=== PATIENT | female | born 1945 | race Two or more races ===

== ENCOUNTER 2023-11-30 06:58 | Day surgery (SDC) | payer OTHER ==
[~2023-11-30] VITALS: Ht 157.5 cm; Wt 59.0 kg
[2023-11-30] VITALS (7 sets, daily range): BP systolic 101–123; BP diastolic 42–65; PULSE 58–72; RESP 11–15; TEMP 97.7; O2SAT 91–97
[~2023-11-30 06:58] MED LIST: ALBU108A14 IN; ALPR0.254 PO; ARIP2TAB PO; ATEN-60 PO; FAMO-12 PO; FLUT1AER6 IN; SERT100T PO; TRAZ-227 PO
[2023-11-30] MEDS ORDERED: IODIXANOL 320MG/ML 100ML BTL IV ONE (07:55)
[2023-11-30] MEDS ORDERED: LIDOCAINE 2%HCL (LOCAL ANESTH.) INJ 20ML MDV ONE (07:55)
[2023-11-30] MEDS ORDERED: HEPARIN SODIUM (PORCINE) 5000 UNITS/ML 1ML VIAL ONE (08:10)
[2023-11-30] MEDS ORDERED: ANGIOMAX 250 MG VIAL IV ONE (08:10)
[2023-11-30] MEDS ORDERED: VERAPAMIL 2.5MG/ML INJ 2ML VIAL IV ONE (08:10)
[2023-11-30] MEDS ORDERED: MIDAZOLAM HCL 2MG/2ML 2ml VIAL (1mg/ml) ONE (08:10)
[2023-11-30] MEDS ORDERED: fentaNYL CITRATE 100 MCG/2 ML VL ONE (08:10)
[2023-11-30] MEDS ORDERED: SODIUM CHL 0.9% 0 ML ONE (08:11)
== END 2023-11-30 11:30 | disposition home or self-care (01) ==
LOC: CATH 06:58
PROVIDERS: ATTEND Internal Medicine
DX: I27.20 Pulmonary hypertension, unspecified (principal); I34.0 Nonrheumatic mitral (valve) insufficiency; I10 Essential (primary) hypertension; J44.9 Chronic obstructive pulmonary disease, unspecified; E78.5 Hyperlipidemia, unspecified; Z79.899 Other long term (current) drug therapy; Z90.710 Acquired absence of both cervix and uterus; Z90.79 Acquired absence of other genital organ(s); Z90.722 Acquired absence of ovaries, bilateral; Z90.89 Acquired absence of other organs; Z98.890 Other specified postprocedural states; Z88.0 Allergy status to penicillin; Z88.1 Allergy status to other antibiotic agents
CPT/HCPCS: 93460; C1757; C1769; C1887; C1894; J1644; J2250; J3010; J7040; Q9967; 99152; 99153